=== PATIENT | female | born 1995 | race Caucasian/White ===

== ENCOUNTER 2016-06-13 12:47 | Emergency (ER) | payer OTHER ==
[~2016-06-13] VITALS: Ht 172.7 cm; Wt 65.8 kg
[~2016-06-13 12:47] MED LIST: DIPH25CA83; MUPI15CR; PRED5TAB48
[2016-06-13 12:51] VITALS: BP 126/71
== END 2016-06-13 13:46 | disposition home or self-care (01) ==
LOC: ER 12:49
DX: J06.9 Acute upper respiratory infection, unspecified (principal); B30.9 Viral conjunctivitis, unspecified
CPT/HCPCS: 99283; A4606; Z7610

== ENCOUNTER 2016-08-24 20:02 | Emergency (ER) | payer OTHER ==
[~2016-08-24] VITALS: Ht 170.2 cm; Wt 63.5 kg
[2016-08-24 20:27] VITALS: BP 125/67
[2016-08-24] MEDS ORDERED: ACETAMINOPHEN 325 MG TABLET PO ONE (21:30)
[2016-08-24] MEDS ORDERED: IBUPROFEN 600 MG TABLET PO ONE ×2 (21:30→21:32)
[2016-08-24] MEDS ORDERED: ACETAMINOPHEN ES 500 MG TABLET ONE (21:32)
== END 2016-08-24 21:49 | disposition home or self-care (01) ==
LOC: ER 20:05
DX: J02.0 Streptococcal pharyngitis (principal)
CPT/HCPCS: 36415; 86308; 87880; 99284; A4606; Z7610; 86403-TC

== ENCOUNTER 2016-09-05 08:30 | Emergency (ER) | payer OTHER ==
[~2016-09-05] VITALS: Ht 170.2 cm; Wt 65.8 kg
[2016-09-05 08:36] VITALS: BP 134/77
== END 2016-09-05 09:21 | disposition home or self-care (01) ==
LOC: ER 08:32
DX: S92.591A Other fracture of right lesser toe(s), initial encounter for closed fracture (principal); W23.0XXA Caught, crushed, jammed, or pinched between moving objects, initial encounter; Y93.89 Activity, other specified; Y92.89 Other specified places as the place of occurrence of the external cause; Y99.8 Other external cause status
CPT/HCPCS: 73660; 99284; A4606; Z7610

== ENCOUNTER 2017-05-06 15:07 | Emergency (ER) | payer OTHER ==
[~2017-05-06] VITALS: Ht 172.7 cm; Wt 69.9 kg
[2017-05-06 15:25] VITALS: BP 128/92
== END 2017-05-06 15:52 | disposition home or self-care (01) ==
LOC: ER 15:08
DX: H66.92 Otitis media, unspecified, left ear (principal); J40 Bronchitis, not specified as acute or chronic
CPT/HCPCS: 99283; A4606; Z7610